=== PATIENT | female | born 2005 | race African-American/Black ===

== ENCOUNTER 2024-11-04 13:29 | Emergency (ER) | payer OTHER ==
[~2024-11-04] VITALS: Ht 149.9 cm; Wt 34.1 kg
[2024-11-04 13:34] VITALS: TEMP 98.2
[2024-11-04 14:43] LABS: BASOPHILS % (AUTO) 0.5 % (0.0-2.0); EOSINOPHILS % (AUTO) 1.3 % (1.0-6.0); HEMATOCRIT 36.4 % (36-46); HEMOGLOBIN 11.8 g/dL (12.0-16.0); LYMPHOCYTES # (AUTO) 1.6 K/uL (1.0-4.8); LYMPHOCYTES % (AUTO) 27.9 % (22.0-44.0); MEAN CORPUSCULAR HEMOGLOBIN 25.6 pg (26.0-34.0); MEAN CORPUSCULAR HGB CONC 32.4 G/dL (31.0-37.0); MEAN CORPUSCULAR VOLUME 79 fL (80-100); MONOCYTES # (AUTO) 0.4 K/uL (0.1-1.0); MONOCYTES % (AUTO) 6.8 % (2.0-9.0); NEUTROPHILS # (AUTO) 3.6 K/uL (1.8-7.7); NEUTROPHILS % (AUTO) 63.5 % (40.0-70.0); PLATELET COUNT (AUTO) 331 K/uL (150-450); RED BLOOD CELL COUNT(AUTO) 4.59 MIL/uL (4.00-5.20); RED CELL DISTRIBUTION WIDTH 17.6 % (11.5-14.5); WHITE BLOOD COUNT (AUTO) 5.7 K/uL (4.5-11.0)
[2024-11-04 15:02] LABS: CHLORIDE 102 mmol/L (98-107); CREATININE 0.66 mg/dL (0.60-1.30); GLOMERULAR FILTR. RATE CALC > 60 mL/min (>60); POTASSIUM 4.1 mmol/L (3.5-5.1); SODIUM SERUM 138 mmol/L (136-145)
[2024-11-04 15:05] LABS: APPEARANCE,URINE HAZY (CLEAR); BILIRUBIN,URINE NEGATIVE (NEGATIVE); COLOR,URINE YELLOW (YELLOW); GLUCOSE, URINE (UA) NEGATIVE (NEGATIVE); KETONES,URINE TRACE mg/dL (NEGATIVE); LEUKOCYTE ESTERASE ,URINE LARGE (NEGATIVE); NITRATE,URINE NEGATIVE (NEGATIVE); OCCULT BLOOD,URINE NEGATIVE (NEGATIVE); PROTEIN,URINE 30-70 mg/dL (NEGATIVE); SPECIFIC GRAVITIY, URINE 1.033 (1.003-1.030); UROBILINOGEN,URINE <=1.0 mg/dL (<=1.0)
[2024-11-04 15:07] LABS: ANION GAP 11 mmol/L (8-16); CARBON DIOXIDE 25 mmol/L (22-29); GLUCOSE,RANDOM 78 mg/dL (70-110); UREA NITROGEN, BLOOD 11 mg/dL (7-18)
[2024-11-04 15:12] LABS: HCG,QUANTITATIVE < 1 mIU/mL (0-6); LIPASE 61 U/L (16-77)
[2024-11-04 15:25] LABS: BACTERIA,URINE Few /HPF (None Seen); RBC,URINE None Seen /HPF (0-2); SQUAMOUS EPITHELIAL CELL,UR Moderate /LPF (None Seen)
[2024-11-04] MEDS: KETOROLAC TROMETHAMINE 30 MG/ML VIAL IVP ONE (15:52)
[2024-11-04] MEDS: SODIUM CHLORIDE 0.9% 1,000 ML IV ONE (15:54)
[2024-11-04] MEDS ORDERED: SODIUM CHLORIDE 0.9% 100 ML ONE (16:05)
[2024-11-04] MEDS ORDERED: IOHEXOL 300 MG/ML 100 ML VIAL ONE (16:05)
[2024-11-04] MEDS ORDERED: 0.9% SODIUM CHLORIDE 10 ML SYRINGE IVP ONE (16:05)
[2024-11-04] MEDS ORDERED: CEPH-558 PO (18:06)
[2024-11-04] MEDS: CefTRIAXone 1 GM/DEXTROSE 50 ML IV ONE (18:25)
[2024-11-04 18:45] VITALS: BP 110/70; PULSE 85; RESP 16; O2SAT 98
== END 2024-11-04 19:08 | disposition home or self-care (01) ==
LOC: EMS 13:32
DX: N39.0 Urinary tract infection, site not specified (principal); R10.32 Left lower quadrant pain
CPT/HCPCS: 99285; 74177; 96365; 96361; 96375; 80048; 81001; 83690; 84702; 85025; 87086; 36415; J1885; J0696; J7030; J7050; Q9967